=== PATIENT | male | born 2000 | race African-American/Black ===

== ENCOUNTER 2021-10-21 20:19 | Emergency (ER) | payer SELFPAY ==
[~2021-10-21] VITALS: Ht 162.6 cm; Wt 90.0 kg
[2021-10-21] MEDS ORDERED: IV NORMAL SALINE 1,000ML 1,000 ML IV ONE (20:45)
--- NOTE | 2021-10-21 21:12 | PHYS DOC ---
Past History Past Medical History: Anxiety, Diabetes (MERRY GUY APRN) Adult General Chief Complaint Chief Complaint: DEPRESSION HPI HPI Patient is a 21-year-old male patient with history of diabetes type 2, open heart surgery at the age of 4, he states he does not know why but he has no complications after that, who presents to the ED today complaining of feeling anxious, feeling down his breathing being shallow symptoms for 3-4 weeks. Patient denies any suicidal or homicidal ideations. He states his body has been tweaking for three weeks. He states he does not know why he is tweaking. He states he uses marijuana and smoked it one hour prior to the onset of symptoms today. He states his aunt is in the ED to see him and he is very afraid she will find out he is using marijuana. Patient's aunt reports she has history of anxiety but does not believe in medicine hence she prays about it. (MERRY GUY APRN) Review of Systems Review of Systems Constitutional: Denies fever or chills [] Eyes: Denies change in visual acuity, redness, or eye pain [] HENT: Denies nasal congestion or sore throat [] Respiratory: Reports shortness of breath. Denies cough Cardiovascular: No additional information not addressed in HPI [] GI: Denies abdominal pain, nausea, vomiting, bloody stools or diarrhea [] : Denies dysuria or hematuria [] Musculoskeletal: Denies back pain or joint pain [] Integument: Denies rash or skin lesions [] Neurologic: Denies headache, focal weakness or sensory changes [] Endocrine: reports feeling anxious, down All other systems were reviewed and found to be within normal limits, except as documented in this note. (MERRY GUY APRN) Current Medications Current Medications Current Medications Medications (Trade) Dose Ordered Sig/Jacinto Start Time Stop Time Status Last Admin Dose Admin Sodium Chloride 1,000 ml @ 1,000 mls/hr 1X ONCE 10/21/21 20:45 10/21/21 21:44 (MERRY GUY APRN) Allergies Allergies Allergies Coded Allergies Type Severity Reaction Last Updated Verified No Known Drug Allergies 10/21/21 No (MERRY GUY APRN) Physical Exam Physical Exam Constitutional: Well developed, well nourished, no acute distress, non-toxic appearance. [] HENT: Normocephalic, atraumatic, bilateral external ears normal, oropharynx [place], no oral exudates, nose normal. [] Eyes: PERRLA, EOMI, conjunctiva normal, no discharge. [] Neck: Normal range of motion, no tenderness, supple, no stridor. [] Cardiovascular: Old healed surgical incision noted on the chest, tachycardic Lungs & Thorax: Bilateral breath sounds clear to auscultation [] Abdomen: Bowel sounds normal, soft, no tenderness, no masses, no pulsatile masses. [] Skin: Warm, dry, no erythema, no rash. [] Back: No tenderness, no CVA tenderness. [] Extremities: No tenderness, no cyanosis, no clubbing, ROM intact, no edema. [] Neurologic: Alert and oriented X 3, normal motor function, normal sensory function, no focal deficits noted. [] Psychologic: Flat affect, anxious, tweaking (MERRY GUY MATERIAL HANDLER FLOORPERSON) Current Patient Data Vital Signs Vital Signs Date Time Temp Pulse Resp B/P (MAP) Pulse Ox O2 Delivery O2 Flow Rate FiO2 10/21/21 21:03 110 20 123/63 (83) 95 Room Air 10/21/21 20:20 98.0 (MERRY GUY APRN) EKG EKG [] (MERRY GUY MATERIAL HANDLER FLOORPERSON) Radiology/Procedures Radiology/Procedures []PROCEDURE: PORTABLE CHEST 1V XR CHEST 1V Clinical Indication: Reason: shortness of breath.hx heart sx for defect / Spl. Instructions: / History: Comparison: None. Findings: There are faint median sternotomy wires. At least one of the wires is fractured. The cardiomediastinal silhouette is normal. Lungs are clear. There is no pneumothorax. No pleural effusion is appreciated. No acute bone abnormality. IMPRESSION: No acute cardiopulmonary process. Electronically signed by: Gilmar Saucedo MD (10/21/2021 9:17 PM) [facility] DICTATED AND SIGNED BY: GILMAR SAUCEDO MD DATE: 10/21/212114 CC: MERRY GUY APRN ~MTH0 0 (MERRY GUY APRN) Heart Score C/O Chest Pain: N/A Risk Factors: Risk Factors: DM, Current or recent (<one month) smoker, HTN, HLP, family history of CAD, obesity. Risk Scores: Risk Factors: DM, Current or recent (<one month) smoker, HTN, HLP, family history of CAD, obesity. (MERRY GUY APRN) Course & Med Decision Making Course & Med Decision Making Pertinent Labs and Imaging studies reviewed. (See chart for details) This is a 21-year-old male patient presenting to the ED today with multiple complaints. Patient states he feels anxious,feeing down, short of air, tweaking symptoms for one month. He states his symptoms got worse this evening. He states he smoked marijuana an hour before his symptoms began. Chest x-ray is negative. Clemencia from the pat team talked to patient she states patient refused to carry on a conversation with her, he was very closed. He was adamant about getting mental health help but denies any suicidal or homicidal ideations. She states she gave patient resources for follow-up. Dr. Ortiz recommended we discharge him to home and will call him if any labs are abnormal. (MERRY GUY APRN) Course & Med Decision Making Did not see or evaluate patient. Did not discuss patient with LISW. Agree with LISW's work-up and disposition per note. (JONES ORTIZ MD) Dragon Disclaimer Dragon Disclaimer This electronic medical record was generated, in whole or in part, using a voice recognition dictation system. (MERRY GUY APRN) Departure Departure: Impression: Primary Impression: Anxiety Disposition: HOME / SELF CARE / HOMELESS Condition: STABLE Patient Instructions: Anxiety and Panic Attacks, [id number] Additional Instructions: You were evaluated in the emergency room. Your work-up is negative for any acute findings as of now. We highly recommend you follow-up with your own primary care doctor as well as the community resources list provided. MERRY GUY APRN Oct 21, 2021 21:12 JONES ORTIZ MD Oct 21, 2021 22:46
[2021-10-21 21:19] LABS: BILIRUBIN,URINE NEG (NEG); CLARITY,URINE CLEAR; COLOR,URINE YELLOW; GLUCOSE,URINE NEG (NEG)
[2021-10-21 21:20] LABS: BACTERIA,URINE 0 /HPF (0-FEW); NITRITE,URINE NEG (NEG); RBC,URINE RARE /HPF (0-2); WBC,URINE 0 /HPF (0-4)
--- NOTE | 2021-10-21 21:20 | RAD ---
XR CHEST 1V Clinical Indication: Reason: shortness of breath.hx heart sx for defect / Spl. Instructions: / Histo ry: Comparison: None. Findings: There are faint median sternotomy wires. At least one of the wires is fractured. The cardiomediastina l silhouette is normal. Lungs are clear. There is no pneumothorax. No pleural effusion is appreciated . No acute bone abnormality. IMPRESSION: No acute cardiopulmonary process. Electronically signed by: Gilmar Saucedo MD (10/21/2021 9:17 PM) [facility]
--- NOTE | 2021-10-21 21:26 | NUR ---
Pt speaking with Clemencia from [facility] team
[2021-10-21 21:35] LABS: BASO # 0.1 x10^3/uL (0.0-0.2); BASO % 1 % (0-3); EOS # 0.4 x10^3/uL (0.0-0.7); EOS % 5 % (0-3); HEMATOCRIT 48.5 % (39.0-53.0); HEMOGLOBIN 15.7 g/dL (13.0-17.5); LYMPH # 1.7 x10^3/uL (1.0-4.8); LYMPH % 25 % (24-48); MEAN CORPUSCULAR HEMOGLOBIN 23 pg (25-35); MEAN CORPUSCULAR HGB CONC 32 g/dL (31-37); MEAN CORPUSCULAR VOLUME 71 fL (79-100); MONO # 0.5 x10^3/uL (0.0-1.1); MONO % 7 % (0-9); NEUT # 4.4 x10^3uL (1.8-7.7); NEUT % 63 % (31-73); PLATELET COUNT 178 x10^3/uL (140-400); RED BLOOD COUNT 6.88 x10^6/uL (4.30-5.70)
[2021-10-21 22:05] LABS: PLT ESTIMATE ADEQUATE (ADEQUATE)
[2021-10-21 22:06] LABS: MICROCYTOSIS SLIGHT
[2021-10-21 22:38] VITALS: BP 128/78
[2021-10-21 22:50] LABS: GFR 102.2
--- NOTE | 2021-10-21 23:19 | EKG ---
[facility] ED [facility] [address] [place] [id number] Test Date: 2021-10-21 Test Time: 22:04:58 Pat Name: ANTHONY SOSA Department: Room: Gender: M Network Systems Consultant: : 2000 Requested By: MERRY GUY Order Number: [id number] Reading MD: Chandrakant Oliveira Measurements Intervals [place] Rate: 101 P: 207 [place]: 230 QRS: 140 QRSD: 76 T: 25 QT: 356 QTc: 468 Interpretive Statements SINUS RHYTHM PROLONGED [place] INTERVAL ABNORMAL RIGHT AXIS DEVIATION Electronically Signed On 10-24-2021 12:03:21 ORTHO TECH by Chandrakant Oliveira
[2021-10-21 23:28] LABS: CREATININE 1.1 mg/dL (0.7-1.3); POTASSIUM 4.2 mmol/L (3.5-5.1)
[2021-10-21 23:35] LABS: ALBUMIN 4.2 g/dL (3.4-5.0); ALBUMIN/GLOBULIN RATIO 1.1 (1.0-1.7); TOTAL BILIRUBIN 0.7 mg/dL (0.2-1.0); TOTAL PROTEIN 8.2 g/dL (6.4-8.2)
[2021-10-21 23:41] LABS: AMPHETAMINE/METHAMPHETAMINE NEG (NEG); BARBITURATES NEG (NEG); BENZODIAZEPINES NEG (NEG); CANNABINOIDS NEG (NEG); COCAINE NEG (NEG); METHADONE NEG (NEG); OPIATES NEG (NEG); PHENCYCLIDINE NEG (NEG)
== END 2021-10-21 22:42 | disposition home or self-care (01) ==
LOC: ER 20:19
DX: F41.9 Anxiety disorder, unspecified (principal); R06.02 Shortness of breath; E11.9 Type 2 diabetes mellitus without complications; Z20.822 Contact with and (suspected) exposure to COVID-19
CPT/HCPCS: 71045; 80053; 80307; 81001; 84484; 85007; 85025; 87426; 93005; 96360; 99285; C9803; G0480; J7030; U0003

== ENCOUNTER 2021-11-19 20:08 | Emergency (ER) | payer SELFPAY ==
[~2021-11-19] VITALS: Ht 162.6 cm; Wt 90.0 kg
--- NOTE | 2021-11-19 20:18 | PHYS DOC ---
Past History Past Medical History: Anxiety, Diabetes Past Surgical History: Other Additional Past Surgical Histo: heart Alcohol Use: None General Adult EDM: Chief Complaint: OTHER COMPLAINTS HPI: HPI: ".. Get anxious.. and my heart rate goes up... I did have open heart surgery as kid...I had four surgeries as kid.. last one was age 4 at ...the fixed a leak area ..septal defect.. I think... I ve been under a lot of stress... my mom got cancer.. and I ve had 3 friends shot... and ..." Patient is a 21 year old male who presents with above hx and complaints anxiety and tachycardia. Patient does have a known history of diabetes recently diagnosed last 4 months. Patient reportedly had a blood sugar of 1600 at time of diagnosis. Patient does have a significant cardiac history of 4 surgeries for the age for for a septal defect. These were completed at . Patient does admit to increased social stressors with his mother's cancer and recent by portia friends. Patient has in the past use marijuana but denies use today. Patient does not smoke. Patient does not do drugs. No recent fevers. Patient has not gotten Covid vaccination patient has not gotten flu vaccination. Patient has not gotten a Pneumovax. Patient used to take a daily aspirin but no longer takes it. Patient has been checking his sugars at night. Patient uses 70/30 insulin 20 units in the morning and 10 units at night. Patient recent travel from [place] to the [facility]. Because of his mom's cancer. Does plan on moving back to [place]. Patient has not follow-up for primary care yet in this area. Patient states blood sugars have been normally around 120. Review of Systems: Review of Systems: Constitutional: Denies fever or chills Eyes: Denies change in visual acuity HENT: Denies nasal congestion or sore throat Respiratory: Denies cough or shortness of breath Cardiovascular: Denies chest pain or edema GI: Denies abdominal pain, nausea, vomiting, bloody stools or diarrhea : Denies dysuria Musculoskeletal: Denies back pain or joint pain Integument: Denies rash Neurologic: Denies headache, focal weakness or sensory changes Endocrine: Denies polyuria or polydipsia Lymphatic: Denies swollen glands Psychiatric: Complains of anxiety Family History: Family History: Noncontributory to presentation Current Medications: Current Meds: See nursing for home meds Allergies: Allergies: Allergies Coded Allergies Type Severity Reaction Last Updated Verified No Known Drug Allergies 10/21/21 No Physical Exam: PE: Constitutional: no acute distress, non-toxic appearance. [] HENT: Normocephalic, atraumatic, bilateral external ears normal, oropharynx moist, no oral exudates, nose normal. [] Eyes: PERRLA, EOMI, conjunctiva normal, no discharge. [] Neck: Normal range of motion, no tenderness, supple, no stridor. [] Cardiovascular:Heart rate regular rhythm,. PMI to left. Murmur not appreciated. Patient states she does have a residual murmur. Lungs & Thorax: Bilateral breath sounds equal apex auscultation [] midline scar. Abdomen: Bowel sounds normal, soft, no tenderness, no masses, no pulsatile masses. [] Skin: Warm, dry, no erythema, no rash. [] Back: No tenderness, no CVA tenderness. [] Extremities: No tenderness, no cyanosis, no clubbing, ROM intact, no edema. [] No cording. Neurologic: Alert and oriented X 3, normal motor function, normal sensory function, no focal deficits noted. [] Psychologic: Affect anxious, judgement normal, mood normal. [] EKG: EKG: My interpretation EKG shows a sinus tachycardia 108 bpm. Does still have a slightly prolonged MI interval of 252 ms. There is right axis deviation. Time of EKG is 2034 hrs. [] Radiology/Procedures: Radiology/Procedures: Patient defers x-ray at this time. [] Heart Score: C/O Chest Pain: No HEART Score for Chest Pain: HEART Score for Chest Pain Response (Comments) Value History Slighlty/Non-Suspicious 0 ECG Nonspecific Repolarizatio 1 Age < 45 0 Risk Factors 1 or 2 Risk Factors 1 Troponin < Normal Limit 0 Total 2 Risk Factors: Risk Factors: DM, Current or recent (<one month) smoker, HTN, HLP, family history of CAD, obesity. Risk Scores: Score 0 - 3: 2.5% MACE over next 6 weeks - Discharge Home Score 4 - 6: 20.3% MACE over next 6 weeks - Admit for Clinical Observation Score 7 - 10: 72.7% MACE over next 6 weeks - Early Invasive Strategies Course & Med Decision Making: Course & Med Decision Making Pertinent Labs and Imaging studies reviewed. (See chart for details) Patient to resume daily aspirin or daily baby aspirin. Patient to follow-up with primary care. Patient follow-up with cardiology and receive outpatient stress test. Patient return if any concerns. Reviewed with patient importance of flu , Covid and penumovax. At this time patient refuses any lab work. Impression: 1. Anxiety 2. Hx Cardiac Surgery as Child for Septal defect 3. History of diabetes [] Dragon Disclaimer: Dragon Disclaimer: This electronic medical record was generated, in whole or in part, using a voice recognition dictation system. Departure Departure: Referrals: PCP,NO (PCP) Dragon Disclaimer This chart was dictated in whole or in part using Voice Recognition software in a busy, high-work load, and often noisy Emergency Department environment. It may contain unintended and wholly unrecognized errors or omissions. Dragon Disclaimer This chart was dictated in whole or in part using Voice Recognition software in a busy, high-work load, and often noisy Emergency Department environment. It may contain unintended and wholly unrecognized errors or omissions. KANE MATTHEWS MD Nov 19, 2021 20:18
[2021-11-19 20:21] VITALS: BP 122/67
--- NOTE | 2021-11-19 21:26 | EKG ---
[address] [address] Test Date: 2021-11-19 Test Time: 20:34:21 Pat Name: ANTHONY SOSA Department: Room: Gender: M Ways Operator: BONIFACIO : 2000 Requested By: KANE MATTHEWS Order Number: [id number] Reading MD: Chandrakant Oliveira Measurements Intervals [place] Rate: 108 P: 0 [place]: 252 QRS: 141 QRSD: 76 T: 20 QT: 294 QTc: 397 Interpretive Statements SINUS TACHYCARDIA PROLONGED [place] INTERVAL LEFT ATRIAL ABNORMALITY T ABNORMALITY IN ANTEROSEPTAL LEADS ABNORMAL ECG Electronically Signed On 11-21-2021 9:25:37 UPSETTER HELPER by Chandrakant Oliveira
== END 2021-11-19 21:35 | disposition home or self-care (01) ==
LOC: ER 20:08
DX: F41.9 Anxiety disorder, unspecified (principal); E11.9 Type 2 diabetes mellitus without complications
CPT/HCPCS: 82947; 93005; 99284

== ENCOUNTER 2021-12-02 17:24 | Emergency (ER) | payer SELFPAY ==
[~2021-12-02] VITALS: Ht 162.6 cm; Wt 86.2 kg
[2021-12-02 18:48] LABS: BASO % 1 % (0-3); EOS # 0.4 x10^3/uL (0.0-0.7); EOS % 7 % (0-3); HEMATOCRIT 49.5 % (39.0-53.0); HEMOGLOBIN 15.8 g/dL (13.0-17.5); LYMPH # 1.2 x10^3/uL (1.0-4.8); LYMPH % 26 % (24-48); MEAN CORPUSCULAR HEMOGLOBIN 23 pg (25-35); MEAN CORPUSCULAR HGB CONC 32 g/dL (31-37); MEAN CORPUSCULAR VOLUME 71 fL (79-100); MONO # 0.4 x10^3/uL (0.0-1.1); MONO % 9 % (0-9); NEUT # 2.7 x10^3uL (1.8-7.7); NEUT % 57 % (31-73); PLATELET COUNT 175 x10^3/uL (140-400); RED CELL DISTRIBUTION WIDTH 15.3 % (11.5-14.5); WHITE BLOOD COUNT 4.8 x10^3/uL (4.0-11.0)
[2021-12-02 18:59] LABS: CALCIUM 9.1 mg/dL (8.5-10.1); CREATININE 1.2 mg/dL (0.7-1.3); GFR 92.5; POTASSIUM 4.6 mmol/L (3.5-5.1)
--- NOTE | 2021-12-02 19:03 | RAD ---
Exam: Chest one view INDICATION: Chest pain TECHNIQUE: Frontal view of the chest Comparisons: None FINDINGS: The cardiomediastinal silhouette and pulmonary vessels are within normal limits. The lung and pleural spaces are clear. IMPRESSION: No acute cardiopulmonary process. Electronically signed by: Live Hernandez MD (12/02/2021 7:00 PM) ANUJ
[2021-12-02 19:30] LABS: PLT ESTIMATE ADEQUATE (ADEQUATE)
[2021-12-02 19:31] LABS: HYPOCHROMIA SLIGHT
[2021-12-02 19:32] LABS: MICROCYTOSIS SLIGHT
[2021-12-02 19:44] VITALS: BP 124/70
[2021-12-02 20:04] LABS: BARBITURATES NEG (NEG); BENZODIAZEPINES NEG (NEG); CANNABINOIDS NEG (NEG); COCAINE NEG (NEG); METHADONE NEG (NEG); OPIATES NEG (NEG); PHENCYCLIDINE NEG (NEG)
[2021-12-02 20:05] LABS: AMPHETAMINE/METHAMPHETAMINE NEG (NEG)
[2021-12-02 20:14] LABS: BACTERIA,URINE 0 /HPF (0-FEW); BILIRUBIN,URINE NEG (NEG); CLARITY,URINE CLEAR; COLOR,URINE YELLOW; GLUCOSE,URINE NEG (NEG); NITRITE,URINE NEG (NEG); RBC,URINE OCC /HPF (0-2); SQUAMOUS EPITHELIAL CELL,UR OCC /LPF; WBC,URINE OCC /HPF (0-4)
--- NOTE | 2021-12-02 20:16 | PHYS DOC ---
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 Patient states "it is 1 to make sure everything is okay with me because my heart feels like it is beating fast". Denies chest pain, shortness of breath. No fever. Denies nausea/vomiting/diarrhea. History of anxiety and diabetes. (BRIAN DOLAN APRN) Review of Systems: Review of Systems: ROS At least 10 ROS systems have been reviewed and are negative except as documented in the HPI. General: Negative except as outlined in HPI above. Skin: Negative except as outlined in HPI above. HEENT: Negative except as outlined in HPI above. Neck: Negative except as outlined in HPI above. Respiratory: Negative except as outlined in HPI above.. Cardiovascular: Negative except as outlined in HPI above. Abdomen: Negative except as outlined in HPI above. : Negative except as outlined in HPI above. Back/MSK: Negative except as outlined in HPI above. Neuro: Negative except as outlined in HPI above. Psych: Negative except as outlined in HPI above. (BRIAN DOLAN APRN) Allergies: Allergies: Allergies Coded Allergies Type Severity Reaction Last Updated Verified No Known Drug Allergies 10/21/21 No (BRIAN DOLAN APRN) Physical Exam: PE: Constitutional: Well developed, well nourished, no acute distress, non-toxic appearance. [] HENT: Normocephalic, atraumatic, bilateral external ears normal, oropharynx moist Eyes: PERRLA, EOMI, conjunctiva normal, no discharge. [] Neck: Normal range of motion, no tenderness, supple, no stridor. [] Cardiovascular:Heart rate regular rhythm, no murmur [] Lungs & Thorax: Bilateral breath sounds clear to auscultation [] Abdomen: Bowel sounds normal, soft, no tenderness, no masses, no pulsatile masses. [] Skin: Warm, dry, no erythema, no rash. [] Back: No tenderness, no CVA tenderness. [] Extremities: No tenderness, no cyanosis, no clubbing, ROM intact, no edema. [] Neurologic: Alert and oriented X 3, normal motor function, normal sensory function, no focal deficits noted. [] Psychologic: Affect normal, judgement normal, mood normal. [] (BRIAN DOLAN APRN) Current Patient Data: Labs: Laboratory Tests Test 12/02/21 18:31 White Blood Count 4.8 x10^3/uL (4.0-11.0) Red Blood Count 7.00 x10^6/uL (4.30-5.70) H Hemoglobin 15.8 g/dL (13.0-17.5) Hematocrit 49.5 % (39.0-53.0) Mean Corpuscular Volume 71 fL (79-100) L Mean Corpuscular Hemoglobin 23 pg (25-35) L Mean Corpuscular Hemoglobin Concent 32 g/dL (31-37) Red Cell Distribution Width 15.3 % (11.5-14.5) H Platelet Count 175 x10^3/uL (140-400) Neutrophils (%) (Auto) 57 % (31-73) Lymphocytes (%) (Auto) 26 % (24-48) Monocytes (%) (Auto) 9 % (0-9) Eosinophils (%) (Auto) 7 % (0-3) H Basophils (%) (Auto) 1 % (0-3) Neutrophils # (Auto) 2.7 x10^3uL (1.8-7.7) Lymphocytes # (Auto) 1.2 x10^3/uL (1.0-4.8) Monocytes # (Auto) 0.4 x10^3/uL (0.0-1.1) Eosinophils # (Auto) 0.4 x10^3/uL (0.0-0.7) Basophils # (Auto) 0.0 x10^3/uL (0.0-0.2) Platelet Estimate Adequate (ADEQUATE) Hypochromasia Slight Microcytosis Slight Sodium Level 138 mmol/L (136-145) Potassium Level 4.6 mmol/L (3.5-5.1) Chloride Level 102 mmol/L (98-107) Carbon Dioxide Level 25 mmol/L (21-32) Anion Gap 11 (6-14) Blood Urea Nitrogen 15 mg/dL (8-26) Creatinine 1.2 mg/dL (0.7-1.3) Estimated GFR (Cockcroft-Gault) 92.5 Glucose Level 107 mg/dL (70-99) H Calcium Level 9.1 mg/dL (8.5-10.1) Troponin I High Sensitivity 8 ng/L (4-75) Vital Signs: Vital Signs Date Time Temp Pulse Resp B/P (MAP) Pulse Ox O2 Delivery O2 Flow Rate FiO2 12/02/21 19:44 92 16 124/70 (88) 96 12/02/21 17:58 98.2 Room Air (BRIAN DOLAN APRN) EKG: EKG: Sinus rhythm. Heart rate [address] elevation or depression. Read by Dr. Roach at 1915. [] (BRIAN DOLAN APRN) Radiology/Procedures: Radiology/Procedures: []Exam: Chest one view INDICATION: Chest pain TECHNIQUE: Frontal view of the chest Comparisons: None FINDINGS: The cardiomediastinal silhouette and pulmonary vessels are within normal limits. The lung and pleural spaces are clear. IMPRESSION: No acute cardiopulmonary process. Electronically signed by: Live Hernandez MD (12/02/2021 7:00 PM) [facility] (BRIAN DOLAN APRN) Heart Score: C/O Chest Pain: Yes HEART Score for Chest Pain: HEART Score for Chest Pain Response (Comments) Value History Slighlty/Non-Suspicious 0 ECG Normal 0 Age < 45 0 Risk Factors 1 or 2 Risk Factors 1 Troponin < Normal Limit 0 Total 1 Risk Factors: Risk Factors: DM, Current or recent (<one month) smoker, HTN, HLP, family history of CAD, obesity. Risk Scores: Score 0 - 3: 2.5% MACE over next 6 weeks - Discharge Home Score 4 - 6: 20.3% MACE over next 6 weeks - Admit for Clinical Observation Score 7 - 10: 72.7% MACE over next 6 weeks - Early Invasive Strategies (BRIAN DOLAN APRN) Course & Med Decision Making: Course & Med Decision Making Pertinent Labs and Imaging studies reviewed. (See chart for details) [] 21-year-old male presents with heart palpitations. Patient appears very anxious and admits to having history of anxiety. Work-up in ER consisted of labs, UA, UDS, chest x-ray, troponin. All labs unremarkable. Chest x-ray unremarkable. EKG shows PACs. Heart rate 87 bpm. Negative troponin. Heart score of 1. Urine drug screen is negative. Discussed all results with patient advised patient the symptoms he is experiencing is most likely due to PACs and also anxiety. Advised patient to follow-up with cardiology. Patient has a mailing jogger that he currently has a relationship with. Patient may need to wear a Holter monitor for further evalu ation. Advised patient to make sure he is drinking plenty of fluids. Discussed return precautions at length with patient. Patient is hemodynamically stable upon disposition. (BRIAN DOLAN APRN) Dragon Disclaimer: Dragon Disclaimer: This electronic medical record was generated, in whole or in part, using a voice recognition dictation system. (BRIAN DOLAN APRN) Departure Departure: Impression: Primary Impression: Anxiety Disposition: HOME / SELF CARE / HOMELESS Condition: STABLE Referrals: PCP,NO (PCP) Patient Instructions: Anxiety and Panic Attacks, [id number] Additional Instructions: You were seen in the emergency room for feelings of racing heart. All of your labs were unremarkable your EKG did show some premature atrial contractions. This is something that you should follow-up with your mailing jogger about. They may want to put you on a Holter monitor for a length of time to watch you closer and further management. Make sure you are drinking plenty of fluids. I also think that during the day is contributing to some of your symptoms as well. Please follow-up with your PCP . Return to the emergency room if you have worsening symptoms or concerns such as chest pain, shortness of breath. EMERGENCY DEPARTMENT GENERAL DISCHARGE INSTRUCTIONS Thank you for coming to [facility] (ED) today and trusting us with you care. We trust that you had a positivie experience in our Emergency Department. If you wish to speak to the department management, you may call the director at [phone]. YOUR FOLLOW UP INSTRUCTIONS ARE FOLLOWS: 1. Do you have a private Doctor? If you do not have a private doctor, please ask for a resource list of physicians or clinics that may be able to assist you with follow up care. 2. The Emergency Physician has interpreted your x-rays. The X-Ray specialist will also review them. If there is a change in the findings, you will be notified in 48 hours when at all possible. 3. A lab test or culture has been done, your results will be reviewed and you will be notified if you need a change in treatment. ADDITIONAL INSTRUCTIONS AND INFORMATION: 1. Your care today has been supervised by a physician who is specially trained in emergency care. Many problems require more than one evaluation for a complete diagnosis a nd treatment. We recommend that you schedule your follow up appointment as recommended to ensure complete treatment of you illness or injury. If you are unable to obtain follow up care and continue to have a problem, or if your condition worsens, we recommend that you return to the ED. 2. We are not able to safely determine your condition over the phone nor are we able to give sound medical advice over the phone. For these safety reasons, if you call for medical advice we will ask you to come to the ED for further evaluation. 3. If you have any questions regarding these discharge instructions please call the ED at [phone]. SAFETY INFORMATION: In the interest of safety, wellness, and injury prevention; we encourage you to wear your sealbelt, if you smoke; quite smoking, and we encourage family to use a protective helmet for bicycling and other sporting events that present an increased risk for head injury. IF YOUR SYMPTOMS WORSEN OR NEW SYMPTOMS DEVELOP, OR YOU HAVE CONCERNS ABOUT YOUR CONDITION; OR IF YOUR CONDITION WORSENS WHILE YOU ARE WAITING FOR YOUR FOLLOW UP APPOINTMENT; EITHER CONTACT YOUR PRIMARY CARE DOCTOR, THE PHYSICIAN WHOSE NAME AND NUMBER YOU WERE GIVEN, OR RETURN TO THE ED IMMEDIATELY. Attending Signature Attending Signature I have reviewed the PA/LEASE ADMINISTRATION ANALYST's note and plan of care. I was available for consultation as needed during the patient's visit in the emergency department. I agree with the clinical impression, plan, and disposition. (NOLA ROACH DO) BRIAN DOLAN APRN Dec 02, 2021 20:16 NOLA ROACH DO Dec 03, 2021 04:06
--- NOTE | 2021-12-02 20:58 | EKG ---
[address] [address] Test Date: 2021-12-02 Test Time: 19:08:04 Pat Name: ANTHONY SOSA Department: Room: Gender: M Supervisor Shearing: SWAPNA : 2000 Requested By: BRIAN DOLAN Order Number: [id number] Reading MD: Pradip Motley MD Measurements Intervals [place] Rate: 87 P: 21 [place]: 298 QRS: 131 QRSD: 78 T: 48 QT: 338 QTc: 407 Interpretive Statements SINUS RHYTHM 1ST DEGREE AVB ANTERIOR ISCHEMIA Electronically Signed On 12-06-2021 8:32:16 ENVIRONMENTAL REMEDIATION SPECIALIST by Pradip Motley MD
== END 2021-12-02 20:28 | disposition home or self-care (01) ==
LOC: ER 17:24
DX: F41.9 Anxiety disorder, unspecified (principal); E11.9 Type 2 diabetes mellitus without complications
CPT/HCPCS: 36415; 71045; 80048; 80307; 81001; 84484; 85025; 93005; 99285